=== PATIENT | male | born 1970 | race Native Hawaiian/Other Pacific Islander ===

== ENCOUNTER 2020-11-15 09:41 | Outpatient (CLI) | payer OTHER | END 2020-11-15 23:59 | disposition home or self-care (01) | LOC: RAD 09:41 | PROVIDERS: ATTEND Internal Medicine | DX: H54.3 Unqualified visual loss, both eyes (principal); M54.2 Cervicalgia; I10 Essential (primary) hypertension; F41.9 Anxiety disorder, unspecified; M25.569 Pain in unspecified knee; F43.10 Post-traumatic stress disorder, unspecified; R20.8 Other disturbances of skin sensation; F32.9 Major depressive disorder, single episode, unspecified ==